=== PATIENT | female | born 1985 | race Two or more races ===

== ENCOUNTER 2020-07-06 16:59 | Emergency (ER) | payer BC, OTHER ==
[~2020-07-06] VITALS: Ht 162.6 cm; Wt 89.4 kg
[2020-07-06 17:35] VITALS: BP 115/59
== END 2020-07-06 20:13 | disposition home or self-care (01) ==
LOC: ER 17:01
DX: U07.1 COVID-19 (principal)
CPT/HCPCS: 36415; 71045; 87426

== ENCOUNTER 2022-04-05 08:55 | Observation (INO) | payer BC ==
[~2022-04-05] VITALS: Ht 162.6 cm; Wt 93.9 kg
[2022-04-05] MEDS ORDERED: PREN-96 PO (09:58)
== END 2022-04-05 12:11 | disposition home or self-care (01) ==
LOC: UNDOADMOB 08:55 → LDRP 08:55
PROVIDERS: ADMIT Obstetrics & Gynecology; ATTEND Obstetrics & Gynecology
DX: O48.0 Post-term pregnancy (principal); O62.9 Abnormality of forces of labor, unspecified; Z3A.40 40 weeks gestation of pregnancy; Z91.040 Latex allergy status
CPT/HCPCS: 59025; 76818; 81002; 84112; 94760; G0378; Q0114

== ENCOUNTER 2022-04-06 07:35 | Observation (INO) | payer BC ==
[~2022-04-06] VITALS: Ht 162.6 cm; Wt 93.9 kg
[~2022-04-06 07:35] MED LIST: PREN-96 PO
== END 2022-04-06 09:40 | disposition home or self-care (01) ==
LOC: LDRP 07:35 → UNDOADMOB 07:35 → LDRP 07:40 → UNDODISOB 09:40
PROVIDERS: ADMIT Obstetrics & Gynecology; ATTEND Obstetrics & Gynecology
DX: O48.0 Post-term pregnancy (principal); O42.92 Full-term premature rupture of membranes, unspecified as to length of time between rupture and onset of labor; O62.9 Abnormality of forces of labor, unspecified; Z3A.40 40 weeks gestation of pregnancy
CPT/HCPCS: 59025; 76815; 81002; 94760; G0378

== ENCOUNTER 2022-04-07 10:00 | Observation (INO) | payer BC | END 2022-04-07 12:52 | disposition home or self-care (01) | LOC: LDRP 10:00 → UNDOADMOB 10:00 → LDRP 10:24 → UNDODISOB 12:52 | PROVIDERS: ADMIT Obstetrics & Gynecology; ATTEND Obstetrics & Gynecology | DX: O48.0 Post-term pregnancy (principal); O62.9 Abnormality of forces of labor, unspecified; Z3A.40 40 weeks gestation of pregnancy | CPT/HCPCS: 59025; 76818; 81002; 94760; G0378 ==

== ENCOUNTER 2022-04-08 07:20 | Inpatient (IN) | payer BC ==
[~2022-04-08] VITALS: Ht 162.6 cm; Wt 93.9 kg
[2022-04-08] MEDS ORDERED: PHISODERM TOP SOLN 240ML BTL TOP PRN (07:45)
[2022-04-08] MEDS ORDERED: LIDOCAINE 2%HCL (LOCAL ANESTH.) INJ 10ml MDV IJ PRN (07:45)
[2022-04-08] MEDS ORDERED: BUTORPHANOL TARTRATE 2 MG/1 ML VIAL IV PRN ×2 (07:45)
[2022-04-08] MEDS ORDERED: PROMETHAZINE HCL 25 MG/ML 1ML IV PRN (07:45)
[2022-04-08] MEDS ORDERED: miSOPROStol 50 MCG per PRE-CUT 1/2 TAB PO PRN (07:45)
[2022-04-08 08:38] LABS: Basophils # (auto) 0.1 10 ^3/uL (0-0.2); Basophils % (auto) 0.7 % (0.0-2.0); Eosinophils # (auto) 0.1 10 ^3/uL (0-0.8); Eosinophils % (auto) 1.2 % (0.0-7.0); Hematocrit 35.8 % (36.0-46.0); Hemoglobin 12.5 g/dL (12.2-16.2); Lymphocytes # (auto) 1.6 10 ^3/uL (0.4-5.4); Lymphocytes % (auto) 18.2 % (10.0-50.0); Mean Corpuscular Hemoglobin 31.9 pg (28.0-32.0); Mean Corpuscular Volume 91.2 fL (80.0-100.0); Monocytes # (auto) 0.7 10 ^3/uL (0-1.3); Monocytes % (auto) 8.1 % (0.0-12.0); Neutrophils # (auto) 6.3 10 ^3/uL (1.6-8.6); Neutrophils % (auto) 71.8 % (37.0-80.0); Red Blood Cells 3.93 10^6/uL (4.0-5.20); Red Cell Distribution Width 13.9 % (11.8-14.3); White Blood Cell 8.8 10^3/uL (4.4-10.8)
[2022-04-08 09:01] LABS: Alcohol, Urine < 3.0 mg/dL (0-10); Amphetamine Screen, Urine NEGATIVE (NEGATIVE); Barbiturate Scree,Urine NEGATIVE (NEGATIVE); Benzodiazephine Screen, Urine NEGATIVE (NEGATIVE); Cannabinoid Screen, Urine NEGATIVE (NEGATIVE); Cocaine Screen, Urine NEGATIVE (NEGATIVE); Opiate Scree,Urine NEGATIVE (NEGATIVE); Phencyclidine Screen, Urine NEGATIVE (NEGATIVE)
[2022-04-08 09:02] LABS: Albumin 2.4 g/dL (3.4-5.0); Calcium 8.6 mg/dL (8.5-10.1); Potassium 3.9 mmol/L (3.5-5.1)
[2022-04-08 09:05] LABS: BUN/Creatinine Ratio 14.5; Bilirubin, Total 0.3 mg/dL (0.2-1.0); Total Protein 6.2 g/dL (6.4-8.2)
[2022-04-08 09:28] LABS: Urine Bacteria FEW /hpf (None Seen); Urine Blood TRACE /uL (Negative); Urine Specific Gravity 1.005 (1.001-1.035); Urine WBC 1 /hpf (0 - 5)
[2022-04-08 09:48] LABS: INR 0.85 (0.9-1.15); Partial Thromboplastin Time 25.9 sec (24.6-33.4)
[2022-04-08] MEDS: SODIUM CHLORIDE 0.9% 1,000 ML IV SCH ×2 (10:09→10:41)
[2022-04-08] MEDS ORDERED: LACT. RINGERS/OXYTOCIN 20UNITS 500 ML IV ONE ×2 (10:15→10:45)
[2022-04-08] MEDS ORDERED: METHYLERGONOVINE MALEATE 0.2 MG/ML AMP IM ONE (10:15)
[2022-04-08] MEDS ORDERED: LIDOCAINE 2%HCL (LOCAL ANESTH.) INJ 20ML MDV ONE (13:18)
[2022-04-08] MEDS ORDERED: ACETAMINOPHEN 325 MG TAB PO PRN (14:30)
[2022-04-08] MEDS ORDERED: ONDANSETRON ODT 4 MG TAB PO PRN (14:30)
[2022-04-08 17:00] VITALS: BP 119/53
[2022-04-08] MEDS: ceFAZolin 1GM/50ML 50 ML IV SCH (17:14)
[2022-04-08] MEDS ORDERED: IBUPROFEN 800 MG TAB PO SCH (18:00)
[2022-04-08] MEDS: WITCH HAZEL-GLYCERIN PAD TOP PRN (18:27)
[2022-04-08] MEDS: DERMOPLAST 60ML BOTTLE TOP PRN (18:27)
[2022-04-08] MEDS: IBUPROFEN 600 MG TAB PO PRN (19:21)
[2022-04-08 19:30] VITALS: BP 108/64
[2022-04-08 23:00] VITALS: BP 111/50
[2022-04-09] MEDS: ceFAZolin 1GM/50ML 50 ML IV SCH ×3 (00:45→16:47)
[2022-04-09 03:00] VITALS: BP 116/63
[2022-04-09] MEDS: IBUPROFEN 600 MG TAB PO PRN ×3 (03:21→20:17)
[2022-04-09 05:07] LABS: RPR Non Reactive (Non Reactive)
[2022-04-09 07:16] VITALS: BP 97/55
[2022-04-09 11:07] VITALS: BP 104/56
[2022-04-09] MEDS: DERMOPLAST 60ML BOTTLE TOP PRN (11:55)
[2022-04-09] MEDS: WITCH HAZEL-GLYCERIN PAD TOP PRN (11:55)
[2022-04-09 15:28] VITALS: BP 108/54
[2022-04-09 19:30] VITALS: BP 114/63
[2022-04-09 23:07] VITALS: BP 110/64
[2022-04-10] MEDS: ceFAZolin 1GM/50ML 50 ML IV SCH (00:26)
[2022-04-10] MEDS: IBUPROFEN 600 MG TAB PO PRN (02:56)
[2022-04-10 03:00] VITALS: BP 127/75
[2022-04-10 06:39] VITALS: BP 111/70
[2022-04-10 11:30] VITALS: BP 116/69
== END 2022-04-10 12:15 | disposition home or self-care (01) | DRG 806 ==
LOC: LDRP 07:20
PROVIDERS: ADMIT Obstetrics & Gynecology; ATTEND Obstetrics & Gynecology
PROC: 3E0DXGC Introduction of Other Therapeutic Substance into Mouth and Pharynx, External Approach (ICD-10-PCS; principal; 2022-04-08)
PROC: 10E0XZZ Delivery of Products of Conception, External Approach (ICD-10-PCS; 2022-04-08)
PROC: 0KQM0ZZ Repair Perineum Muscle, Open Approach (ICD-10-PCS; 2022-04-08)
PROC: 0W8NXZZ Division of Female Perineum, External Approach (ICD-10-PCS; 2022-04-08)
DX: O48.0 Post-term pregnancy (principal); O41.03X0 Oligohydramnios, third trimester, not applicable or unspecified; Z37.0 Single live birth; Z3A.40 40 weeks gestation of pregnancy; O70.1 Second degree perineal laceration during delivery; O69.81X0 Labor and delivery complicated by cord around neck, without compression, not applicable or unspecified; Z20.822 Contact with and (suspected) exposure to COVID-19
CPT/HCPCS: 36415; 59409; 80053; 80307; 81001; 85025; 85610; 85730; 86592; 86850; 86900; 86901; 94760; 96360; 96361; 96365; 96366; 96372; G0378; J0690; J2590

== ENCOUNTER 2023-06-23 23:05 | Inpatient (IN) | payer BC ==
[~2023-06-23] VITALS: Ht 162.6 cm; Wt 90.7 kg
[2023-06-24] MEDS ORDERED: PENICILLIN G POT 5MIL/D5 50ML 50 ML IV ONE
[2023-06-24] MEDS ORDERED: WITCH HAZEL-GLYCERIN PAD TOP PRN
[2023-06-24] MEDS ORDERED: LACTATED RINGER'S 1,000 ML IV SCH
[2023-06-24] MEDS ORDERED: LIDOCAINE 2%HCL (LOCAL ANESTH.) INJ 20ML MDV IJ PRN
[2023-06-24] MEDS ORDERED: PROMETHAZINE HCL 25 MG/ML 1ML IV PRN
[2023-06-24] MEDS ORDERED: DERMOPLAST 60ML BOTTLE TOP PRN
[2023-06-24] MEDS ORDERED: PHISODERM TOP SOLN 240ML BTL TOP PRN
[2023-06-24] MEDS ORDERED: LACT. RINGERS/OXYTOCIN 20UNITS 1,000 ML IV ONE (00:07)
[2023-06-24] MEDS ORDERED: LACT. RINGERS/OXYTOCIN 20UNITS 500 ML IV ONE ×2 (00:30)
[2023-06-24 01:13] LABS: Basophils # (auto) 0 10 ^3/uL (0-0.2); Basophils % (auto) 0.3 % (0.0-2.0); Eosinophils # (auto) 0 10 ^3/uL (0-0.8); Eosinophils % (auto) 0.1 % (0.0-7.0); Hematocrit 38.1 % (36.0-46.0); Hemoglobin 12.8 g/dL (12.2-16.2); Lymphocytes # (auto) 1.3 10 ^3/uL (0.4-5.4); Lymphocytes % (auto) 8.2 % (10.0-50.0); Mean Corpuscular Hemoglobin 31.7 pg (28.0-32.0); Mean Corpuscular Hgb Conc. 33.7 g/dL (32.0-36.0); Monocytes % (auto) 5.8 % (0.0-12.0); Neutrophils % (auto) 85.6 % (37.0-80.0); Red Blood Cells 4.05 10^6/uL (4.0-5.20); Red Cell Distribution Width 12.9 % (11.8-14.3); White Blood Cell 16.3 10^3/uL (4.4-10.8)
[2023-06-24 01:36] LABS: INR 0.91 (0.9-1.15); Partial Thromboplastin Time 25.3 SEC (24.5-34.5); Prothrombin Time 9.6 sec (9.3-11.8)
[2023-06-24 02:51] LABS: Alanine Aminotransferase 15 U/L (7-40); Albumin 3.7 g/dL (3.2-4.8); Alkaline Phosphatase 128 U/L (46-116); Anion Gap 10 (5-15); Aspartate Aminotransferase 16 U/L (13-40); BUN/Creatinine Ratio 10.7 (10.0-20.0); Bilirubin, Total 0.5 mg/dL (0.2-1.0); Blood Urea Nitrogen 6 mg/dL (9-23); Calcium 8.6 mg/dL (8.5-10.1); Carbon Dioxide 21 mmol/L (20-30); Chloride 104 mmol/L (98-107); Glucose 96 mg/dL (74-106); Potassium 3.7 mmol/L (3.5-5.1); Sodium 135 mmol/L (136-145); Total Protein 6.3 g/dL (5.7-8.2)
[2023-06-24 03:20] VITALS: BP 122/85; PULSE 76; RESP 17; TEMP 97.8; O2SAT 97
[2023-06-24] MEDS ORDERED: PENICILLIN G POTASSIUM 2,500,000 UNITS in D5W 5% 50 ML IV SCH (04:00)
[2023-06-24 06:38] LABS: Urine Bacteria FEW /hpf (None Seen); Urine Blood 3+ /uL (Negative); Urine Clarity Clear (Clear); Urine Color Red (Yellow); Urine Mucus FEW (None Seen); Urine Protein, UAD 2+ (Negative); Urine Specific Gravity 1.007 (1.001-1.035); Urine Urobilinogen Normal (Negative); Urine WBC 75 /hpf (0 - 5); Urine pH 6.5 (5.0-8.0)
[2023-06-24 07:00] VITALS: BP 107/56; PULSE 80; RESP 16; TEMP 98.2
[2023-06-24] MEDS ORDERED: ONDANSETRON ODT 4 MG TAB PO PRN (08:00)
[2023-06-24 08:05] LABS: Amphetamine Screen, Urine Neg (NEGATIVE); Benzodiazephine Screen, Urine Neg (NEGATIVE)
[2023-06-24 08:06] LABS: Barbiturate Scree,Urine Neg (NEGATIVE); Cannabinoid Screen, Urine Neg (NEGATIVE); Cocaine Screen, Urine Neg (NEGATIVE); Opiate Scree,Urine Neg (NEGATIVE); Phencyclidine Screen, Urine Neg (NEGATIVE)
[2023-06-24 11:20] VITALS: BP 112/64; PULSE 92; RESP 17; TEMP 99.8
[2023-06-24] MEDS: ACETAMINOPHEN 325 MG TAB PO PRN ×2 (12:00→23:49)
[2023-06-24 15:00] VITALS: BP 100/57; PULSE 83; RESP 16; TEMP 99.2
[2023-06-24 18:50] VITALS: BP 110/57; PULSE 85; RESP 17; TEMP 97.6
[2023-06-24] MEDS: IBUPROFEN 600 MG TAB PO PRN (18:59)
[2023-06-24 23:10] VITALS: BP 104/58; PULSE 83; RESP 17; TEMP 98.2; O2SAT 98
[2023-06-25 02:50] VITALS: BP 95/59; PULSE 78; RESP 18; TEMP 97.9; O2SAT 98
[2023-06-25] MEDS: IBUPROFEN 600 MG TAB PO PRN (04:44)
[2023-06-25 07:23] VITALS: BP 104/56; PULSE 76; RESP 17; TEMP 97.4; O2SAT 99
[2023-06-27 07:06] LABS: RPR Non Reactive (Non Reactive)
== END 2023-06-25 11:50 | disposition home or self-care (01) | DRG 807 ==
LOC: LDRP 23:05 → UNDOADMOB 23:05 → INTOOBSV 23:40 → OBSVTOIN 23:40 → UNDOADMOB 06-24 → OBSVTOIN 06-24 → LDRP 06-24 → INTOOBSV 06-24 → LDRP 06-24 04:41
PROVIDERS: ADMIT Obstetrics & Gynecology; ATTEND Obstetrics & Gynecology
PROC: 10E0XZZ Delivery of Products of Conception, External Approach (ICD-10-PCS; principal; 2023-06-24)
PROC: 0KQM0ZZ Repair Perineum Muscle, Open Approach (ICD-10-PCS; 2023-06-24)
DX: O42.92 Full-term premature rupture of membranes, unspecified as to length of time between rupture and onset of labor (principal); Z37.0 Single live birth; Z3A.37 37 weeks gestation of pregnancy; O70.1 Second degree perineal laceration during delivery
CPT/HCPCS: 36415; 59025; 59409; 80053; 80307; 81001; 85025; 85610; 85730; 86592; 86850; 86900; 86901; 94760; 96360; 96365; 96366; G0378; J2590; J7060

== ENCOUNTER → 2023-08-09 | Outpatient (CLI) | payer BC ==
[2023-08-09 11:23] LABS: Basophils # (auto) 0 10 ^3/uL (0-0.2); Basophils % (auto) 0.7 % (0.0-2.0); Eosinophils # (auto) 0.2 10 ^3/uL (0-0.8); Eosinophils % (auto) 2.8 % (0.0-7.0); Hematocrit 40.8 % (36.0-46.0); Hemoglobin 13.9 g/dL (12.2-16.2); Mean Corpuscular Hemoglobin 31.4 pg (28.0-32.0); Mean Corpuscular Volume 92.2 fL (80.0-100.0); Monocytes # (auto) 0.7 10 ^3/uL (0-1.3); Monocytes % (auto) 10.2 % (0.0-12.0); Neutrophils # (auto) 3.5 10 ^3/uL (1.6-8.6); Neutrophils % (auto) 55.3 % (37.0-80.0); Nucleated Red Blood Cells % 0.2 %; Red Blood Cells 4.43 10^6/uL (4.0-5.20); Red Cell Distribution Width 12.2 % (11.8-14.3); White Blood Cell 6.4 10^3/uL (4.4-10.8)
[2023-08-09 12:47] LABS: Alanine Aminotransferase 67 U/L (7-40); Albumin 4.4 g/dL (3.2-4.8); Alkaline Phosphatase 88 U/L (46-116); Anion Gap 6 (5-15); Aspartate Aminotransferase 39 U/L (13-40); BUN/Creatinine Ratio 9.4 (10.0-20.0); Bilirubin, Total 0.7 mg/dL (0.2-1.0); Blood Urea Nitrogen 6 mg/dL (9-23); Carbon Dioxide 26 mmol/L (20-30); Chloride 109 mmol/L (98-107); Glucose 94 mg/dL (74-106); Potassium 3.9 mmol/L (3.5-5.1); Sodium 141 mmol/L (136-145)
== END | disposition home or self-care (01) ==
LOC: LAB 11:02
PROVIDERS: ATTEND Obstetrics & Gynecology
DX: R53.83 Other fatigue (principal)
CPT/HCPCS: 36415; 80053; 82306; 85025